=== PATIENT | male | born 1935 | race Caucasian/White ===

== ENCOUNTER → 2019-09-01 | Outpatient (CLI) | payer MEDICARE, OTHER ==
[~2019-09-01] MED LIST: ASPIRIN325 PO; ATORVASTATIN CA40 MG PO; AVASTIN25 MG/1 ML; CENTRUM SILVER1 EAC4 PO; FISH OIL 1,001000 M2 PO; FLONASE 0.05%50 MCG; HYTRIN 5 M5 MG/1 CAP PO; LISINOPRIL10 MG PO; MUCINEX D TABL1 EACH PO; NITROGLYCERIN0.4 MG SUBLING; TOPROL XL25 MG PO
== END ==
LOC: M.MRI 06:43
DX: I65.1 Occlusion and stenosis of basilar artery (principal); R42 Dizziness and giddiness; R55 Syncope and collapse

== ENCOUNTER → 2019-10-06 | Outpatient (CLI) | payer MEDICARE, OTHER | LOC: M.MRI 09-27 12:57 | DX: I65.22 Occlusion and stenosis of left carotid artery (principal); R90.82 White matter disease, unspecified; J34.89 Other specified disorders of nose and nasal sinuses; I65.1 Occlusion and stenosis of basilar artery ==